=== PATIENT | female | born 1995 | race Caucasian/White ===

== ENCOUNTER 2019-04-26 00:13 | Inpatient (IN) ==
[2019-04-26] MEDS ORDERED: RINGER'S SOLUTION,LACTATED 1,000 ML IV ONE (00:20)
[2019-04-26] MEDS: MISOPROSTOL 100 MCG TABLET VG PRN ×3 (01:03→14:04)
[2019-04-26 01:29] LABS: Cocaine Ur Negative (NEGATIVE); Urine Barbiturate Negative (NEGATIVE); Urine Benzodiazepines Negative (NEGATIVE); Urine Opiates Negative (NEGATIVE); Urine PCP Negative (NEGATIVE); Urine THC Negative (NEGATIVE)
--- NOTE | 2019-04-26 08:52 | HP ---
Chief Complaint - Chief Complaint Date of Service: 04/26/19 Time of Service: 08:52 Chief Complaint: elective induction of labor History of Present Illness: 24 yo at 40 wks presents to L&D for elective induction of labor. This complicated by anemia, anxiety, kidney stone, and recurrent UTI. Rh positive Rubella immune GBS negative Medical History (Last Reviewed 04/26/19 @ 19:46 by Eliseo Zaman DO) Kidney stone complicating Onset Date: ~02/28/19 Anxiety Surgical History: Surgical History (Last Reviewed 04/26/19 @ 19:46 by Eliseo Zaman DO) History of foot surgery foreign body removed right foot Family History: Family History (Last Reviewed 04/26/19 @ 19:46 by Eliseo Zaman DO) Mother Diabetes, Onset Age: 43 Father Diabetes Grandfather Diabetes Social History: (Last Reviewed 04/26/19 @ 19:46 by Eliseo Zaman DO) Social History: adopted: No Marital status: Single lives independently: Yes household members: significant other current occupational status: employed 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 current occupational exposures/hazards: No Highest education level completed: high school graduate Service: No Tobacco: Smoking Status: Former smoker Alcohol: alcohol intake: former details: stopped with +UPT Substance Use: substance use type: does not use Dietary Habits: caffeine: Yes caffeine comment: 1-2 Type: carbonated beverages, coffee Review Of Systems (GEN) - Review of Systems Generalized/Overall Review: Present: No Symptoms Reported EENTM: Present: No Symptoms Reported Respiratory: Present: No Symptoms Reported Cardiac: Present: No Symptoms Reported Abdominal: Present: No Symptoms Reported Genitourinary: Present: No Symptoms Reported Musculoskeletal: Present: No Symptoms Reported Neurological: Present: No Symptoms Reported Skin: Present: No Symptoms Reported Endocrine: Present: No Symptoms Reported Immunizations: IMMUNIZATION HX Immunizations Up to Date Yes History of Influenza Vaccine No Hx Pneumococcal Vaccination No Allergies/Adverse Reactions: Allergies Allergy/AdvReac Type Severity Reaction Status Date / Time No Known Allergies Allergy Verified 04/26/19 00:21 Home Medications: HOME MEDICATIONS vitamin with calcium no.72-iron 27 mg-folic acid 1 mg tablet 1 tab PO DAILY #30 tab 01/16/19 [Last Taken 04/25/19 21:00] ferrous sulfate 325 mg (65 mg iron) tablet 325 mg PO DAILY #30 tab 01/17/19 [Last Taken Unknown] Exam - Exam Vital Signs: Vital Signs - Last Taken Temp 36.7 C 04/26/19 00:34 Pulse 102 H 04/26/19 00:34 Resp 20 04/26/19 00:34 BP 122/71 04/26/19 00:34 Pulse Ox 99 04/26/19 00:34 Constitutional: Present: Alert, Oriented x3, Cooperative ENT Exam: Present: hearing grossly normal Breasts: Present: Exam deferred Respiratory: Present: lungs clear, no respiratory distress Cardiovascular/Chest: Present: regular rate, rhythm Abdomen: Present: soft, nontender, no rebound tenderness, other - gravid /Rectal: Present: Other - cervix - cl/50/-2 Extremity: Present: no pedal edema, no calf tenderness Skin Exam: Present: normal color, warm/dry, no cyanosis Neurologic: Present: alert, normal mood/affect, oriented x 3 Appearance: Present: appropriate appearance, appropriate insight Eye contact: Present: cooperative, good eye contact Thoughts: Present: normal thought pattern Diagnostic Studies: Laboratory Results Urine Opiates Screen Negative (NEGATIVE) 04/26/19 01:00 Barbiturate Screen Negative (NEGATIVE) 04/26/19 01:00 Ur Phencyclidine Scrn Negative (NEGATIVE) 04/26/19 01:00 Urine Amphetamine Negative (NEGATIVE) 04/26/19 01:00 U Benzodiazepines Scrn Negative (NEGATIVE) 04/26/19 01:00 Urine Cocaine Screen Negative (NEGATIVE) 04/26/19 01:00 Urine Marijuana (THC) Negative (NEGATIVE) 04/26/19 01:00 Assessment/Plan - Assessment/Plan (1) Elective induction of labor planned Assessment: Admit for Cytotec induction of labor. Pitocin augmentation PRN. Epidural PRN. Problem: Acute (2) Anemia Problem: Acute Qualifiers: Anemia type: iron deficiency Iron deficiency anemia type: inadequate dietary iron intake Qualified Code(s): D50.8 - Other iron deficiency anemias (3) Recurrent UTI (urinary tract infection) complicating Problem: Inactive Qualifiers: Trimester: third trimester Qualified Code(s): O23.43 - Unspecified infection of urinary tract in , third trimester (4) Kidney stone complicating Problem: Resolved Qualifiers: Trimester: second trimester Qualified Code(s): O26.832 - related renal disease, second trimester; N20.0 - Calculus of kidney
--- NOTE | 2019-04-26 09:00 | PN ---
Progess Note - Interim Date: 04/26/19 Time: 08:53 Narrative: 04/26/19 08:53 Patient comfortable with epidural Vital signs stable. Status post Cytotec 2 doses-last dose at 0510 FHT: 120 baseline, reassuring contractions q 2-3 min Cervix: /-2 Impression: Intrauterine at 40 weeks, induction of labor Plan: Will give her regular diet, allow her to shower and ambulate a couple hours before giving next dose of Cytotec or starting Pitocin if davy too frequently for Cytotec..
[2019-04-26] MEDS: OXYTOCIN/DEXTROSE 5%-WATER 30 UNITS/500 ML BAG IV ONE ×2 (10:33→20:31)
[2019-04-26] MEDS ORDERED: FLU VACC QS2019-20(6MOS UP)/PF 60 MCG/0.5 ML SYRINGE IM ONE (21:00)
[2019-04-26] MEDS ORDERED: NALOXONE HCL 1 MG/1 ML SYRG IV PRN (23:19)
[2019-04-26] MEDS ORDERED: ONDANSETRON HCL/PF 2 MG/ML VIAL IV PRN (23:19)
[2019-04-26] MEDS ORDERED: BUPIVACAINE HCL/0.9 % NACL/PF 250 ML EP PRN (23:19)
[2019-04-26] MEDS ORDERED: BUPIVACAINE HCL/PF 30 ML VIAL EP SCH (23:30)
--- NOTE | 2019-04-26 23:37 | ANES ---
Anesthesia Pre Procedure Eval Vitals/Labs: Last Vital Signs Temp 36.1 C 04/26/19 23:21 Pulse 83 04/26/19 23:21 Resp 20 04/26/19 23:21 BP 150/83 H 04/26/19 23:21 Pulse Ox 98 04/26/19 23:21 HOME MEDICATIONS vitamin with calcium no.72-iron 27 mg-folic acid 1 mg tablet 1 tab PO DAILY #30 tab 01/16/19 [Last Taken 04/25/19 21:00] ferrous sulfate 325 mg (65 mg iron) tablet 325 mg PO DAILY #30 tab 01/17/19 [Last Taken Unknown] Allergies/Adverse Reactions: Allergies Allergy/AdvReac Type Severity Reaction Status Date / Time No Known Allergies Allergy Verified 04/26/19 00:21 - Planned Procedure Planned Procedure: Labor epidural Medication List Reviewed:: Yes Allergies Verified: Yes Medical History (Last Reviewed 04/26/19 @ 19:46 by Eliseo Zaman DO) Kidney stone complicating Onset Date: ~02/28/19 Anxiety Surgical History (Last Reviewed 04/26/19 @ 19:46 by Eliseo Zaman DO) History of foot surgery foreign body removed right foot Family History (Last Reviewed 04/26/19 @ 19:46 by Eliseo Zaman DO) Mother Diabetes, Onset Age: 43 Father Diabetes Grandfather Diabetes - Cardiovascular Tolerate Activity: Good Heart Sounds: S1 & S2, Regular - Anesthesia Assessment and Plan ASA Class: PS, II Anesthesia Type Plan: Epidural
--- NOTE | 2019-04-26 23:54 | ANES ---
Anesthesia Procedure Note Procedure Note: ANESTHESIA PROCEDURE NOTE Date of Procedure: 04/26/2019. Time of procedure: 2335. Performed by: Jovany Treviño CRNA Planner Intern: None. Preprocedure diagnosis: Active labor. Post procedure diagnosis: Same. Procedure: Insertion of labor epidural. Indications: The patient is a 24-year-old female in active labor requesting labor epidural for pain management. Findings: See below. Details of the procedure: The patient was placed in a sitting position. DuraPrep as well as Betadine swabs X3 was applied to the patient's back. Patient was then draped in a sterile fashion. Lidocaine 1% was infiltrated to the skin and subcutaneous tissues at the level of the L3-4 interspace. The epidural space was identified using a 18-gauge Tuohy needle with [id number] technique. Epidural catheter was inserted to a depth of 9 centimeters at skin. Negative test dose was elicited using 3 mL of 1.5% preservative-free lidocaine plus epinephrine 1 200,000. The epidural catheter was then taped and secured in place. A loading dose of 8 mL of 0.25% preservative-free bupivacaine was administered to the epidural catheter after negative aspiration for blood and CSF. EBL: Minimal. Fluids: N/A. Specimen: N/A. Post procedure condition: The patient tolerated the procedure well. No complications were noted. Thank you for this consultation. Jovany Treviño CRNA
--- NOTE | 2019-04-26 23:55 | ANES ---
Post Anesthesia Assessment - Vital Signs Vitals: Last Vital Signs Temp 36.1 C 04/26/19 23:21 Pulse 83 04/26/19 23:21 Resp 20 04/26/19 23:21 BP 150/83 H 04/26/19 23:21 Pulse Ox 98 04/26/19 23:21 Airway Patency: Normal - Mental Status Level Of Consciousness: Awake - N/V Assessment Nausea/Vomiting Presence: None Dehydration:: No
[2019-04-27] MEDS: DEXTROSE 5%-LACTATED RINGERS 1,000 ML IV PRN ×2 (00:01→08:27)
--- NOTE | 2019-04-27 08:25 | PN ---
Progess Note - Interim Date: 04/27/19 Time: 08:22 Narrative: 04/27/19 08:22 Patient comfortable with epidural Vital signs stable. Pitocin at 8 mu/min. FHT: 140 baseline, good accelerations, moderate variability, early decelerations. Contractions q 2-3 min Cervix: 7/80/-1, SROM-clear at 2240 on 04/26/2019 Impression: Intrauterine at 40 1/7 weeks, induction of labor. Plan: Anticipate normal spontaneous vaginal delivery soon.
[2019-04-27] MEDS ORDERED: HYDROCORTISONE 30 APPL TUBE TP PRN (13:42)
[2019-04-27] MEDS ORDERED: BENZOCAINE/MENTHOL 81 SPRAY CAN TP PRN (13:42)
[2019-04-27] MEDS ORDERED: BISACODYL 10 MG SUPP.RECT RC PRN (13:42)
[2019-04-27] MEDS ORDERED: IBUPROFEN 800 MG TABLET PO PRN (13:42)
[2019-04-27] MEDS ORDERED: OXYTOCIN/DEXTROSE 5%-WATER 30 UNITS/500 ML BAG IV ONE (13:42)
[2019-04-27] MEDS ORDERED: GLYCERIN/WITCH HAZEL LEAF 40 APPL BOX TP PRN (13:42)
[2019-04-27] MEDS ORDERED: SENNOSIDES 8.6 MG TABLET PO PRN (13:42)
--- NOTE | 2019-04-27 13:44 | OR ---
Operative Report - Dictated Report Narrative: Spontaneous vaginal delivery of vigorously crying viable male at 1320 with Apgars 9 and 9, weighing 3623 g in FERNANDO position with left hand at face. Cord clamping delayed approximately 1 minute Placenta delivered complete, intact, with three vessel cord Estimated blood loss: Less than 50 ml Anesthesia: Epidural Lacerations: None History for MU History for MU Definition: * The number of deliveries resulting in a live the patient experienced prior to current hospitalization * The previous delivery of live twins or any live multiple gestation is considered one live event. *If primagravida or nulliparous is documented select zero for the number of previous live births. Live Events: Live Events: 0
[2019-04-27] MEDS: IBUPROFEN 800 MG TABLET PO PRN (20:29)
[2019-04-27] MEDS: DOCUSATE SODIUM 100 MG CAPSULE PO SCH (20:29)
[2019-04-27] MEDS: oxyCODONE HCL/ACETAMINOPHEN 1 TAB TABLET PO PRN (21:41)
[2019-04-28] MEDS: oxyCODONE HCL/ACETAMINOPHEN 1 TAB TABLET PO PRN ×4 (01:43→20:01)
--- NOTE | 2019-04-28 07:41 | PN ---
Subjective - Date and Time Seen Date: 04/28/19 Time: 07:40 Objective - Vitals Vitals: Last Vital Signs Temp 37.0 C 04/28/19 07:05 Pulse 94 04/28/19 07:05 Resp 14 04/28/19 07:05 BP 118/79 04/28/19 07:05 Pulse Ox 99 04/28/19 07:05 Patient denies complaints. Breast-feeding. Lochia wnl abdomen - soft, nontender Uterus -firm, at umbilicus - 1 no calf tenderness Impression: day #1 - s/p spontaneous vaginal delivery. Plan: Continue routine care Cauti Physician Documentation - Urinary Catheter Management Urethral ([facility]) Date of Insertion: 04/27/19 Time of Insertion: 01:00 Assessment/Plan - Problems/Diagnosis (1) Elective induction of labor planned Problem: Acute (2) Anemia Problem: Acute Qualifiers: Anemia type: iron deficiency Iron deficiency anemia type: inadequate dietary iron intake Qualified Code(s): D50.8 - Other iron deficiency anemias (3) Recurrent UTI (urinary tract infection) complicating Problem: Inactive Qualifiers: Trimester: third trimester Qualified Code(s): O23.43 - Unspecified infection of urinary tract in , third trimester (4) Kidney stone complicating Problem: Resolved Qualifiers: Trimester: second trimester Qualified Code(s): O26.832 - related renal disease, second trimester; N20.0 - Calculus of kidney
[2019-04-28] MEDS: DOCUSATE SODIUM 100 MG CAPSULE PO SCH ×2 (08:56→20:01)
[2019-04-28] MEDS ORDERED: FLU VACC QS2019-20(6MOS UP)/PF 60 MCG/0.5 ML SYRINGE IM ONE (09:00)
[2019-04-28] MEDS: IBUPROFEN 800 MG TABLET PO PRN ×2 (12:12→20:01)
[2019-04-29] MEDS: oxyCODONE HCL/ACETAMINOPHEN 1 TAB TABLET PO PRN ×2 (02:14→09:54)
[2019-04-29] MEDS: IBUPROFEN 800 MG TABLET PO PRN ×2 (02:14→09:54)
[2019-04-29 06:56] VITALS: BP 117/72
--- NOTE | 2019-04-29 08:57 | PN ---
Subjective - Date and Time Seen Date: 04/29/19 Time: 08:56 Objective - Vitals Vitals: Last Vital Signs Temp 36.1 C 04/29/19 06:55 Pulse 77 04/29/19 06:55 Resp 20 04/29/19 06:55 BP 117/72 04/29/19 06:55 Pulse Ox 99 04/29/19 06:55 Patient denies complaints. Breast-feeding well. Lochia wnl abdomen - soft, nontender Uterus -firm, at umbilicus - 2 no calf tenderness Impression: day #2 - s/p spontaneous vaginal delivery. Plan: Routine discharge instructions Cauti Physician Documentation - Urinary Catheter Management Urethral ([facility]) Date of Insertion: 04/27/19 Time of Insertion: 01:00 Assessment/Plan - Problems/Diagnosis (1) Elective induction of labor planned Problem: Acute (2) Anemia Problem: Acute Qualifiers: Anemia type: iron deficiency Iron deficiency anemia type: inadequate dietary iron intake Qualified Code(s): D50.8 - Other iron deficiency anemias (3) Recurrent UTI (urinary tract infection) complicating Problem: Inactive Qualifiers: Trimester: third trimester Qualified Code(s): O23.43 - Unspecified infection of urinary tract in , third trimester (4) Kidney stone complicating Problem: Resolved Qualifiers: Trimester: second trimester Qualified Code(s): O26.832 - related renal disease, second trimester; N20.0 - Calculus of kidney
[2019-04-29] MEDS: DOCUSATE SODIUM 100 MG CAPSULE PO SCH (09:55)
== END 2019-04-29 16:05 | disposition home or self-care (01) | DRG 806 ==
LOC: OB 00:13
PROVIDERS: ADMIT Obstetrics & Gynecology; ATTEND Obstetrics & Gynecology
CPT/HCPCS: 59025; 80307